=== PATIENT | male | born 1980 | race Two or more races ===

== ENCOUNTER 2025-03-24 22:21 | Emergency (ER) | payer OTHER ==
[~2025-03-24] VITALS: Ht 175.3 cm; Wt 88.6 kg
[2025-03-25] MEDS: ACETAMINOPHEN 325 MG TAB PO ONE (00:11)
[2025-03-25] MEDS: SODIUM CHLORIDE 0.9% 1,000 ML IV ONE ×2 (00:16→02:22)
[2025-03-25] MEDS ORDERED: ACET500T58 PO (00:19)
[2025-03-25] MEDS: TETANUS-DIPTH-ACEL PERTUSSIS 0.5ML SYR Tdap IM ONE (00:19)
[2025-03-25] MEDS ORDERED: AMOX875T4 PO (00:19)
--- NOTE | 2025-03-25 00:21 | ED.PDOC ---
HPI Comments 44-year-old male presents to ER with complaints of dog bite x 20 minutes. Patient reports he was bit by his neighbor's dog on the right side of his forehead 20 minutes prior to arrival to ER and sustained laceration to right side of forehead at that time. States he is unsure if the dog is up-to-date on shots and is unsure when his last tetanus shot was. He reports 10/10 pain localized to dog bite on right side of forehead. Denies use of medications for current symptoms. Patient presents to ER alert and oriented x4, in mild distress and reports he has been drinking alcohol tonight. Denies LOC, numbness/tingling, foreign body sensation, headache, neck pain, eye pain/vision changes or any further symptoms/complaints Chief Complaint: Animal Bite Time Seen by MD: 22:43 Primary Care Provider: UNKNOWN Reviewed Notes: Nurses Notes, Medications, Allergies Allergies: Coded Allergies: NO KNOWN ALLERGIES (Unverified , 03/24/25) Home Meds Active Scripts Acetaminophen (Acetaminophen) 500 Mg Tab, 500 MG PO Q4HPRN, #30 TAB 0 Refills Prov:ANT LOYD 03/25/25 Amoxicillin & Pot Clavulanate (Amoxicillin/Potassium Cla) 875 Mg Tab, 1 TAB PO BID for 7 Days, #14 TAB 0 Refills Prov:ANT LOYD 03/25/25 Information Source: Patient Mode of Arrival: Wheelchair Complexity: Intermediate Laceration Length (cm): 4 Skin Type: Flap Past Medical History PAST MEDICAL HISTORY: HIV Surgical History: Denies all surgeries Family History Family History: Unknown Social History Smoker: Cigarettes, Less Than 1 Pack/Day Alcohol: Heavy Drugs: Marijuana Lives In: Home Constitutional: denies: chills, diaphoresis, fatigue, fever, malaise, sweats, weakness, others EENTM: denies: blurred vision, double vision, ear bleeding, ear discharge, ear drainage, ear pain, ear ringing, eye pain, eye redness, hearing loss, mouth pain, mouth swelling, nasal discharge, nose bleeding, nose congestion, nose pain, photophobia, tearing, throat pain, throat swelling, voice changes, others Respiratory: denies: cough, hemoptysis, orthopnea, SOB at rest, shortness of breath, SOB with excertion, stridor, wheezing, others Cardiovascular: denies: chest pain, dizzy spells, diaphoresis, Dyspnea on exertion, edema, irregular heart beat, left arm pain, lightheadedness, palpitations, PND, syncope, others Gastrointestinal: denies: abdomen distended, abdominal pain, blood streaked bowels, constipated, diarrhea, dysphagia, difficulty swallowing, hematemesis, melena, nausea, poor appetite, poor fluid intake, rectal bleeding, rectal pain, vomiting, others Genitourinary: denies: burning, dysuria, flank pain, frequency, hematuria, incontinence, penile discharge, penile sore, pain, testicle pain, testicle swel ling, urgency, others Neurological: reports: others (As stated in HPI) Musculoskeletal: denies: back pain, gout, joint pain, joint swelling, muscle pain, muscle stiffness, neck pain, others Integumetry: reports: others (As stated in HPI) Allergic/Immunocompromised: denies: Difficulty Healing, Frequent Infections, Hives, Itching, others Hematologic/Lymphatic: denies: anemia, blood clots, easy bleeding, easy bruising, swollen glands, others Endocrine: denies: excessive hunger, excessive sweating, excessive thirst, excessive urination, flushing, intolerance to cold, intolerance to heat, une xplained weight gain, unexplained weight loss, others Psychiatric: denies: anxiety, bipolar disorder, depression, hopeless, panic disorder, schizophrenia, sleepless, suicidal, others Physical Exam General Appearance: Mild Distress (Due to pain from dog bite to right frontal scalp) HEENT: Normal ENT Inspection, PERRL/EOMI, Pharynx Normal, TMs Normal, Other (4 cm laceration noted to right frontal scalp. Slight TTP/swelling/erythema localized to wound edges. No foreign body/further skin changes noted) Neck: Full Range of Motion, Non-Tender, Normal Respiratory: Chest Non-Tender, Lungs Clear, No Accessory Muscle Use, No Respiratory Distress, Normal Breath Sounds Cardiovascular: No Murmur, No Gallop, Regular Rate/Rhythm Breast Exam: Deferred Gastrointestinal: NOT DONE Genitalia: Deferred Pelvic: Deferred Rectal: Deferred Extremities: Normal capillary refill, Normal range of motion Neurologic: Alert, string top sealer II-XII nml as Tested, No Motor Deficits, No Sensory Deficits Cerebellar Function: Normal Reflexes: Normal Skin: Dry, Warm Lymphatic: No Adenopathy Was a procedure done? Was a procedure done?: Yes Sedation Sedation?: No Laceration Repair : Location Right frontal scalp Length 4 cm Anesthetic: Lidocaine (1%), Without epi Laceration Repair Prep: Saline (and peroxide), by Irrigation (Heavily irrigated without any signs of foreign body) Laceration Repair Wound Comple: epidermis/dermis repair Laceration Repair: Number of sutures (4 placed - loosely approximated- patient tolerated well without complication), Size (5-0), Nylon, Simple, Non- adherent gauze Informed consent obtained: Yes Risks, benefits, and alternati: Yes Differential diagnosis Generic Laceration: Fracture, Retained Foriegn Body, Neurovascular Injury Differential Diagnosis: Closed Head Injury X-Ray, Labs, Meds, VS Vital Signs Date Time Temp Pulse Resp B/P (MAP) Pulse Ox O2 Delivery O2 Flow Rate FiO2 03/25/25 02:05 98.7 86 14 144/95 (111) 94 98.7 03/25/25 00:17 113 20 98 Room Air 03/25/25 00:17 98.7 113 20 147/112 (124) 98 98.7 03/24/25 23:09 98.7 113 20 147/112 (124) 98 98.7 Lab Test 03/24/25 00:00 Range/Units Plasma/Serum Blood Alcohol 362.8 H <10 mg/dL Current Medications Medications (Trade) Dose Ordered Sig/Kelly Route Start Time Stop Time Status Last Admin Sodium Chloride 1,000 ml @ 1,000 mls/hr Q1H ONCE IV 03/24/25 23:15 03/25/25 00:14 DC 03/25/25 00:16 Diphtheria/ Tetanus/Acell Pertussis (Boostrix T-Dap) 0.5 ml ONCE ONCE IM 03/24/25 23:15 03/24/25 23:19 DC 03/25/25 00:19 Ceftriaxone Sodium 50 ml @ 100 mls/hr ONCE ONCE IV 03/24/25 23:15 03/24/25 23:44 DC 03/25/25 01:40 Acetaminophen (Tylenol Tablet) 650 mg ONCE ONCE PO 03/25/25 00:15 03/25/25 00:16 DC 03/25/25 00:11 PATIENT: LIVIA NICHOLAS Alice ACCT: [id number] UNIT: [id number] : 1980 LOC: ER ROOM / BED: / AGE / SEX: 44 / M ADM STATUS: REG ER SERVICE [id number] ORDERING PHYSICIAN: ANT LOYD PROCEDURE(s): HWOCT - HEAD WITHOUT CONTRAST REASON: dog bite/laceration right frontal scalp ORDER NUMBER(s): [id number], ACCESSION NUMBER(s): [id number] CT HEAD WITHOUT CONTRAST INDICATION: dog bite/laceration right frontal scalp COMPARISON: None TECHNIQUE: CT of the head without intravenous contrast. RADIATION DOSE: CTDIvol: mGy, DLP: mGy*cm FINDINGS: There is no evidence of intracranial hemorrhage, infarct, extra-axial collectio n, mass effect, midline shift, herniation or hydrocephalus. The ventricles, sulci and cisterns are normal. The elizondo-white differentiation is normal. Evidence of scalp laceration in right anterior frontal region/forehead. No scalp hematoma. No calvarial abnormality/fracture. Old fracture of right medial orbital wall. Mucus retention cysts noted in both maxillary sinuses; otherwise unremarkable. Mastoid air cells and middle ear cavities are clear. IMPRESSION: No intracranial abnormality identified. ATED BY: BRYAN MAKI MD DICTATED DATE/TIME: 03/25/2523 SIGNED BY: BRYAN MAKI MD SIGNED DATE/TIME: 03/25/2523 CC: CT head without contrast reviewed Blood alcohol reviewed 362.8 reviewed Hep-Lock IV ordered 2 L NS IV ordered Rocephin 1 g IV ordered Tdap 0.5 mL IM ordered Tylenol 650 mg p.o. ordered Wound cleaning performed at bedside Wound care/cleaning discussed and advised Patient reported improvement in symptoms, able to ambulate independently and in no distress prior to discharge Advised to follow up in two days for wound check Advised to follow up in five days for removal of sutures Advised to follow up with PCP in 1-2 days Patient alert and oriented x4 prior to discharge. Patient and patient's sister verbalized understanding and agreeable with current plan of care Advised to return to ER immediately if symptoms worsen Images Reviewed?: Images reviewed and evaluated by me Time of 1ST Reevaluation: 00:14 Reevaluation 1ST: N/A Time of 2ND Reevaluation: 02:14 Reevaluation 2ND: Improved Patient Education/Counseling: Diagnosis, Treatment, Prognosis, Need For Follow Up Family Education/Counseling: Diagnosis, Treatment, Prognosis, Need For Follow Up Departure 1 Departure Time of Disposition: 02:18 Impression: Primary Impression: Dog bite of forehead Qualified Codes: S01.85XA - Open bite of other part of head, initial encounter; W54.0XXA - Bitten by dog, initial encounter Additional Impression: Laceration of forehead Qualified Codes: S01.81XA - Laceration without foreign body of other part of head, initial encounter Disposition: 01 HOME / SELF CARE / HOMELESS Condition: Stable e-Prescriptions Acetaminophen (Acetaminophen) 500 Mg Tab 500 MG PO Q4HPRN, #30 TAB 0 Refills Prov: ANT LOYD 03/25/25 Amoxicillin & Pot Clavulanate (Amoxicillin/Potassium Cla) 875 Mg Tab 1 TAB PO BID for 7 Days, #14 TAB 0 Refills Prov: ANT LOYD 03/25/25 Discharged With: Other (sister) Critical Care Note Critical Care Time?: No Stability Stability form required: No Heart Score Heart Score: Heart Score Response (Comments) Value History N/A 0 EKG N/A 0 Age N/A 0 Risk Factors N/A 0 Troponin N/A 0 Total 0 ANT LOYD March 25, 2025 00:21
--- NOTE | 2025-03-25 00:26 | DVH ---
CT HEAD WITHOUT CONTRAST INDICATION: dog bite/laceration right frontal scalp COMPARISON: None TECHNIQUE: CT of the head without intravenous contrast. RADIATION DOSE: CTDIvol: mGy, DLP: mGy*cm FINDINGS: There is no evidence of intracranial hemorrhage, infarct, extra-axial collection, mass effect, midlin e shift, herniation or hydrocephalus. The ventricles, sulci and cisterns are normal. The elizondo-white d ifferentiation is normal. Evidence of scalp laceration in right anterior frontal region/forehead. No scalp hematoma. No calvari al abnormality/fracture. Old fracture of right medial orbital wall. Mucus retention cysts noted in brent th maxillary sinuses; otherwise unremarkable. Mastoid air cells and middle ear cavities are clear. IMPRESSION: No intracranial abnormality identified.
[2025-03-25] MEDS: cefTRIAXone 1GM/50ML D5W 50 ML IV ONE (01:40)
[2025-03-25 02:05] VITALS: BP 144/95; PULSE 86; RESP 14; TEMP 98.7; O2SAT 94
== END 2025-03-25 00:53 | disposition home or self-care (01) ==
LOC: ER 22:21
DX: S01.81XA Laceration without foreign body of other part of head, initial encounter (principal); F17.210 Nicotine dependence, cigarettes, uncomplicated; W54.0XXA Bitten by dog, initial encounter; X58.XXXA Exposure to other specified factors, initial encounter; Y93.89 Activity, other specified; Y92.89 Other specified places as the place of occurrence of the external cause; Y99.8 Other external cause status
CPT/HCPCS: 12002; 36415; 70450; 80320; 90471; 90715; 96365; 99285; J0696; J7030